=== PATIENT | female | born 1985 | race Two or more races ===

== ENCOUNTER 2020-08-11 13:13 | Inpatient (IN) | payer MEDICAID, OTHER ==
[~2020-08-11] VITALS: Ht 154.9 cm; Wt 81.8 kg
[2020-08-11 13:45] LABS: MICROSCOPIC INDICATED
[2020-08-11 14:01] VITALS: BP 149/92
[2020-08-11 14:01] LABS: AMPHETAMINE SCREEN, URINE Positive (Negative); BARBITURATE SCREEN, URINE Negative (Negative); BENZODIAZEPINE SCREEN, URINE Negative (Negative); CANNABINOID SCREEN, URINE Negative (Negative); COCAINE SCREEN, URINE Negative (Negative); METHADONE SCREEN, URINE Negative (Negative); OPIATE SCREEN, URINE Negative (Negative); PROTEIN/CREATININE RATIO,URINE 1390 (0-200); TOTAL PROTEIN,URINE RANDOM 139 mg/dL (0-12)
[2020-08-11 14:06] LABS: BASOPHILS # (AUTO) 0.02 x10^3/uL (0-0.1); BASOPHILS % (AUTO) 0 % (0-1); EOSINOPHILS # (AUTO) 0.03 x10^3/uL (0-0.4); EOSINOPHILS % (AUTO) 0 % (1-7); LYMPHOCYTES % (AUTO) 13 % (22-44); MD SCAN; MEAN CORPUSCULAR HGB CONC 31.7 g/dL (32.4-35.8); MEAN PLATELET VOLUME 8.9 fL (7.4-10.4); MONOCYTES # (AUTO) 0.48 x10^3/uL (0.2-0.8); MONOCYTES % (AUTO) 4 % (2-9); NEUTROPHILS # (AUTO) 9.34 x10^3/uL (1.8-6.8); NEUTROPHILS % (AUTO) 83 % (42-75); PLATELET COUNT 219 x10^3/uL (130-400); RED BLOOD COUNT 4.44 x10^6/uL (3.82-5.3); RED CELL DISTRIBUTION WIDTH 18.2 % (9.6-15.2)
[2020-08-11 14:14] LABS: ALANINE AMINOTRANSFERASE 21 U/L (12-78); ALBUMIN 2.1 g/dL (3.4-5.0); ANION GAP 10 mmol/L (5-15); CALCIUM 8.4 mg/dL (8.5-10.1); CHLORIDE 108 mmol/L (98-107); CREATININE 0.82 mg/dL (0.55-1.02)
[2020-08-11 14:20] LABS: ALKALINE PHOSPHATASE 284 U/L (45-117); BILIRUBIN,TOTAL 0.3 mg/dL (0.2-1.0); TOTAL PROTEIN 6.5 g/dL (6.4-8.2)
[2020-08-11] MEDS ORDERED: AMPICILLIN 2 GM in SODIUM CHLORIDE 0.9% 100 ML IVPB STA (14:40)
[2020-08-11] MEDS ORDERED: D5%-LACTATED RINGERS 1,000 ML IV SCH (14:40)
[2020-08-11] MEDS ORDERED: OXYTOCIN 30U/ 0.9% NaCL 500ML 500 ML IV ONE (14:40)
[2020-08-11] MEDS ORDERED: METOCLOPRAMIDE 5 MG/ML, 2ML IVPush PRN (15:00)
[2020-08-11] MEDS ORDERED: TERBUTALINE 1 MG/ML, 1ML SQ PRN (15:00)
[2020-08-11] MEDS ORDERED: FENTANYL PF 100 MCG/2ML IVPush PRN (15:00)
[2020-08-11] MEDS ORDERED: FENTANYL PF 100 MCG/2ML IV PRN ×2 (15:00→18:00)
[2020-08-11] MEDS ORDERED: ONDANSETRON 2MG/ML, 2ML IVPush PRN ×2 (15:00→18:00)
[2020-08-11] MEDS ORDERED: SODIUM CITRATE/CITRIC ACID 30 ML UDC PO PRN (15:00)
[2020-08-11] MEDS ORDERED: TERBUTALINE 1 MG/ML, 1ML IVPush PRN (15:00)
[2020-08-11] MEDS: LACTATED RINGERS 1,000 ML IV SCH ×6 (15:01→20:31)
[2020-08-11] MEDS ORDERED: OXYTOCIN 30U/ 0.9% NaCL 500ML 500 ML ONE (15:06)
[2020-08-11] MEDS ORDERED: LIDOCAINE 1%, 20ML ONE (15:07)
[2020-08-11] MEDS ORDERED: MISOPROSTOL 200 MCG TABLET ONE (15:07)
[2020-08-11] MEDS ORDERED: NEWBORN KIT ONE (15:07)
[2020-08-11] MEDS ORDERED: FENTANYL/BUPIV./NS/PF 250 ML EPIDCONT SCH (15:08)
[2020-08-11] MEDS ORDERED: FENTANYL/BUPIV./NS/PF 250 ML EPIDCONT ONE (15:21)
[2020-08-11] MEDS ORDERED: BUPIVACAINE 0.25% ONE (15:22)
[2020-08-11] MEDS ORDERED: LACTATED RINGERS 1,000 ML IVBOLUS PRN (15:30)
[2020-08-11] MEDS ORDERED: EPHEDRINE 50 MG/ML, 1ML IVPush PRN ×2 (15:30→18:00)
[2020-08-11] MEDS ORDERED: NALOXONE 0.4 MG/ML, 1ML IVPush PRN (15:30)
[2020-08-11] MEDS ORDERED: PROPOFOL 10 MG/ML, 20ML ONE (16:16)
[2020-08-11] MEDS ORDERED: FENTANYL PF 100 MCG/2ML ONE ×2 (16:16→16:33)
[2020-08-11] MEDS ORDERED: ONDANSETRON 2MG/ML, 2ML ONE (16:16)
[2020-08-11] MEDS ORDERED: PHENYLEPHRINE 10 MG/ML ONE (16:16)
[2020-08-11] MEDS ORDERED: KETOROLAC 30 MG/1 ML ONE (16:16)
[2020-08-11] MEDS ORDERED: OXYTOCIN 10 UNITS/ML, 1ML ONE (16:16)
[2020-08-11] MEDS ORDERED: EPHEDRINE 50 MG/ML, 1ML ONE (16:16)
[2020-08-11] MEDS ORDERED: CEFAZOLIN 1,000 MG ONE (16:16)
[2020-08-11] MEDS ORDERED: SUCCINYLCHOLINE 20 MG/ML, 10ML ONE (16:16)
[2020-08-11] MEDS ORDERED: DEXAMETHASONE 4 MG/ML, 1ML ONE (16:16)
[2020-08-11] MEDS ORDERED: AZITHROMYCIN 500 MG INJ ONE (16:20)
[2020-08-11] MEDS ORDERED: SODIUM BICARBONATE 4.2%, 5ML ONE (16:20)
[2020-08-11] MEDS ORDERED: SODIUM CHLORIDE 0.9%, 250ML ONE (16:20)
[2020-08-11] MEDS ORDERED: LIDOCAINE 2%, 20ML ONE (16:20)
[2020-08-11] MEDS ORDERED: METOCLOPRAMIDE 5 MG/ML, 2ML ONE (16:22)
[2020-08-11] MEDS ORDERED: morphine SULFATE/PF 0.5 MG/ML, 10ML ONE (16:33)
[2020-08-11] MEDS ORDERED: HETASTARCH 0.9 % 500 ML IV SCH (18:00)
[2020-08-11] MEDS ORDERED: morphine SULFATE 10 MG/ML, 1ML IV PRN (18:00)
[2020-08-11] MEDS ORDERED: PROMETHAZINE 25 MG/ML, 1ML IV PRN (18:00)
[2020-08-11] MEDS ORDERED: ALBUTEROL SULFATE 2.5 MG/3 ML NPPB PRN (18:00)
[2020-08-11] MEDS ORDERED: OXYcodone 5 MG/5 ML ORAL.SOL UDC PO PRN (18:00)
[2020-08-11] MEDS ORDERED: hydrALAzine 20 MG/ML, 1ML IV PRN (18:00)
[2020-08-11] MEDS ORDERED: HYDROcodone/APAP 7.5-325MG/15ML UDC PO PRN (18:00)
[2020-08-11] MEDS ORDERED: MIDAZOLAM 1 MG/ML, 2ML IV PRN (18:00)
[2020-08-11] MEDS ORDERED: HYDROmorphone 2 MG/ML, 1ML IVPush PRN (18:00)
[2020-08-11] MEDS ORDERED: AMPICILLIN 1 GM in SODIUM CHLORIDE 0.9% 100 ML IVPB SCH (19:00)
[2020-08-11] MEDS ORDERED: MISOPROSTOL 200 MCG TABLET PR ONE (19:00)
[2020-08-11] MEDS: METOPROLOL 1 MG/ML, 5ML IV PRN ×2 (19:23→19:33)
[2020-08-11] MEDS ORDERED: LABETALOL 5MG/ML, 20ML ONE (19:49)
[2020-08-11] MEDS ORDERED: LABETALOL 5MG/ML, 20ML IVPush PRN (19:50)
[2020-08-11] MEDS: LABETALOL 5MG/ML, 20ML IV PRN ×2 (19:51→20:04)
[2020-08-11] MEDS ORDERED: HYDROcodone/APAP 7.5-325MG/15ML UDC ONE (19:54)
[2020-08-11 20:02] VITALS: BP 160/72
[2020-08-11] MEDS: OXYTOCIN 30U/ 0.9% NaCL 500ML 500 ML IV SCH (20:31)
[2020-08-11 21:00] VITALS: BP 159/96
[2020-08-11] MEDS ORDERED: OXYcodone IR 5MG TABLET PO PRN ×2 (21:00)
[2020-08-11 21:41] VITALS: BP 156/96
[2020-08-12] MEDS: SIMETHICONE 80 MG CHEW TAB PO PRN ×2 (00:19→08:38)
[2020-08-12] MEDS: OXYcodone/APAP 5/325MG TABLET PO PRN ×3 (00:20→15:39)
[2020-08-12] MEDS: KETOROLAC 30 MG/1 ML IV SCH ×4 (00:20→20:22)
[2020-08-12 00:43] VITALS: BP 157/89
[2020-08-12 01:38] LABS: BASOPHILS # (AUTO) 0.01 x10^3/uL (0-0.1); BASOPHILS % (AUTO) 0 % (0-1); EOSINOPHILS # (AUTO) 0.01 x10^3/uL (0-0.4); EOSINOPHILS % (AUTO) 0 % (1-7); LYMPHOCYTES # (AUTO) 0.95 x10^3/uL (1-3.4); LYMPHOCYTES % (AUTO) 5 % (22-44); MD SCAN; MEAN CORPUSCULAR HEMOGLOBIN 26.1 pg (27.0-34.8); MEAN CORPUSCULAR HGB CONC 31.9 g/dL (32.4-35.8); MEAN PLATELET VOLUME 9.1 fL (7.4-10.4); MONOCYTES # (AUTO) 0.16 x10^3/uL (0.2-0.8); MONOCYTES % (AUTO) 1 % (2-9); NEUTROPHILS # (AUTO) 18.54 x10^3/uL (1.8-6.8); NEUTROPHILS % (AUTO) 94 % (42-75); PLATELET COUNT 211 x10^3/uL (130-400); RED BLOOD COUNT 4.08 x10^6/uL (3.82-5.3); RED CELL DISTRIBUTION WIDTH 17.9 % (9.6-15.2)
[2020-08-12] MEDS: LACTATED RINGERS 1,000 ML IV SCH ×5 (04:31→20:31)
[2020-08-12 04:36] VITALS: BP 138/90
[2020-08-12] MEDS: OXYTOCIN 30U/ 0.9% NaCL 500ML 500 ML IV SCH ×2 (06:31→16:31)
[2020-08-12 08:20] VITALS: BP 114/78
[2020-08-12] MEDS: DOCUSATE 100 MG CAPSULE PO PRN (08:22)
[2020-08-12] MEDS: PRENATAL VIT/IRON/FA 1 EACH TABLET PO SCH (08:22)
[2020-08-12 12:00] VITALS: BP 138/82
[2020-08-12 19:35] VITALS: BP_SYST 144; BP_SYST 148; BP_DIAS 83; BP_DIAS 93
[2020-08-13] MEDS: OXYcodone/APAP 5/325MG TABLET PO PRN ×5 (01:33→21:00)
[2020-08-13] MEDS: SIMETHICONE 80 MG CHEW TAB PO PRN ×3 (01:33→21:00)
[2020-08-13] MEDS: OXYTOCIN 30U/ 0.9% NaCL 500ML 500 ML IV SCH ×2 (02:31→12:31)
[2020-08-13] MEDS: LACTATED RINGERS 1,000 ML IV SCH ×4 (02:31→12:31)
[2020-08-13] MEDS: KETOROLAC 30 MG/1 ML IV SCH ×2 (03:21→09:09)
[2020-08-13 07:30] VITALS: BP 136/85
[2020-08-13] MEDS ORDERED: DIPH,PERTUSS(ACELL),TET VAC/PF NC IM-VACC ONE ×2 (07:50→08:30)
[2020-08-13] MEDS: PRENATAL VIT/IRON/FA 1 EACH TABLET PO SCH (09:09)
[2020-08-13] MEDS: DOCUSATE 100 MG CAPSULE PO PRN (09:09)
[2020-08-13] MEDS: IBUPROFEN 600 MG TABLET PO PRN ×2 (15:26→22:18)
[2020-08-13 21:00] VITALS: BP 159/98
[2020-08-14] MEDS: OXYcodone/APAP 5/325MG TABLET PO PRN ×4 (02:29→19:54)
[2020-08-14 07:35] VITALS: BP 147/80
[2020-08-14] MEDS: IBUPROFEN 600 MG TABLET PO PRN ×2 (08:04→15:43)
[2020-08-14] MEDS: PRENATAL VIT/IRON/FA 1 EACH TABLET PO SCH (08:04)
[2020-08-14] MEDS: SIMETHICONE 80 MG CHEW TAB PO PRN ×2 (08:04→19:56)
[2020-08-14] MEDS: DOCUSATE 100 MG CAPSULE PO PRN ×2 (08:05→19:54)
[2020-08-14 13:30] VITALS: BP 155/90
[2020-08-14 19:50] VITALS: BP 172/112
[2020-08-14 20:25] VITALS: BP 158/98
[2020-08-14 20:26] VITALS: BP 149/92
[2020-08-15 00:05] VITALS: BP 153/97
[2020-08-15] MEDS: IBUPROFEN 600 MG TABLET PO PRN ×4 (00:09→18:16)
[2020-08-15] MEDS: OXYcodone/APAP 5/325MG TABLET PO PRN ×4 (00:09→18:18)
[2020-08-15 04:15] VITALS: BP 149/92
[2020-08-15 07:10] VITALS: BP 151/91
[2020-08-15] MEDS: DOCUSATE 100 MG CAPSULE PO PRN (08:20)
[2020-08-15] MEDS: PRENATAL VIT/IRON/FA 1 EACH TABLET PO SCH (08:20)
[2020-08-15] MEDS: SIMETHICONE 80 MG CHEW TAB PO PRN (08:20)
[2020-08-15 13:30] VITALS: BP 143/89
[2020-08-15] MEDS ORDERED: SENN-92 PO (17:44)
[2020-08-15] MEDS ORDERED: IBUP-1222 PO (17:44)
[2020-08-15] MEDS ORDERED: OXYC-302 PO (17:44)
== END 2020-08-15 18:50 | disposition home or self-care (01) | DRG 787 ==
LOC: LDOP 13:13 → LDIP 14:34 → 2NW 20:45
PROVIDERS: ADMIT Obstetrics & Gynecology; ATTEND Obstetrics & Gynecology
PROC: 10D00Z1 Extraction of Products of Conception, Low, Open Approach (ICD-10-PCS; principal; 2020-08-11)
DX: O14.04 Mild to moderate pre-eclampsia, complicating childbirth (principal); O41.03X0 Oligohydramnios, third trimester, not applicable or unspecified; F15.90 Other stimulant use, unspecified, uncomplicated; O76 Abnormality in fetal heart rate and rhythm complicating labor and delivery; O77.0 Labor and delivery complicated by meconium in amniotic fluid; O99.324 Drug use complicating childbirth; Z37.0 Single live birth; Z3A.38 38 weeks gestation of pregnancy; Z03.818 Encounter for observation for suspected exposure to other biological agents ruled out
CPT/HCPCS: 36415; 87806; J3490; 76805; 80053; 80307; 81001; 82570; 84156; 84550; 85025; 86592; 86762; 86850; 86900; 87081; 87340; 87635; 88307; 90715; G0378; J0290; J0456; J0690; J1100; J1885; J2274; J2405; J2704; J3010; G0475; J0330; J2370; J2590; J2765; J7050; J7120

== ENCOUNTER 2020-08-22 16:55 | Inpatient (IN) | payer MEDICAID ==
[~2020-08-22] VITALS: Ht 154.9 cm; Wt 89.2 kg
[~2020-08-22 16:55] MED LIST: IBUP-1222 PO; OXYC-302 PO; SENN-92 PO
[2020-08-22] MEDS ORDERED: SODIUM CHLORIDE FLUSH 10ML SYR IVF ONE (18:00)
[2020-08-22 18:12] LABS: BASOPHILS # (AUTO) 0.05 x10^3/uL (0-0.1); BASOPHILS % (AUTO) 1 % (0-1); EOSINOPHILS # (AUTO) 0.06 x10^3/uL (0-0.4); EOSINOPHILS % (AUTO) 1 % (1-7); LYMPHOCYTES # (AUTO) 2.21 x10^3/uL (1-3.4); LYMPHOCYTES % (AUTO) 23 % (22-44); MD NO; MEAN CORPUSCULAR HEMOGLOBIN 26.1 pg (27.0-34.8); MEAN CORPUSCULAR HGB CONC 31.5 g/dL (32.4-35.8); MEAN PLATELET VOLUME 7.3 fL (7.4-10.4); MONOCYTES # (AUTO) 0.38 x10^3/uL (0.2-0.8); MONOCYTES % (AUTO) 4 % (2-9); NEUTROPHILS # (AUTO) 6.82 x10^3/uL (1.8-6.8); NEUTROPHILS % (AUTO) 72 % (42-75); PLATELET COUNT 543 x10^3/uL (130-400); RED BLOOD COUNT 4.44 x10^6/uL (3.82-5.3); RED CELL DISTRIBUTION WIDTH 20.3 % (9.6-15.2)
--- NOTE | 2020-08-22 18:20 | NUR ---
PT AMBULATES WELL AROUND ROOM AND TO BATHROOM FOR UA SAMPLE. NAD NOTED AT THIS TIME, PLEASANT WITH STAFF. VERBALIZES UNDERSTANDING OF PLAN OF CARE.
[2020-08-22 18:21] LABS: ALBUMIN 2.7 g/dL (3.4-5.0); ANION GAP 8 mmol/L (5-15); CALCIUM 8.3 mg/dL (8.5-10.1); CHLORIDE 108 mmol/L (98-107); CREATININE 0.84 mg/dL (0.55-1.02)
--- NOTE | 2020-08-22 18:22 | NUR ---
ua walked to lab.
[2020-08-22 18:24] LABS: MICROSCOPIC AUTO
[2020-08-22 18:28] LABS: ALANINE AMINOTRANSFERASE 60 U/L (12-78); ALKALINE PHOSPHATASE 149 U/L (45-117); BILIRUBIN,TOTAL 0.4 mg/dL (0.2-1.0); TOTAL PROTEIN 7.2 g/dL (6.4-8.2); TROPONIN I 0.085 ng/mL (0.000-0.045)
--- NOTE | 2020-08-22 19:18 | NUR ---
pt in imaging upon RN recheck.
[2020-08-22] MEDS ORDERED: OMNIPAQUE 350 MG/ML, 75ML BOTTLE ONE (19:30)
--- NOTE | 2020-08-22 19:31 | NUR ---
PT RETURNED FROM CTA. DENIES PAIN AT THIS TIME, C/O SOB. O2 VIA NC PROVIDES RELIEF FOR PT'S COMPLAINT, SHE REPORTS IMPROVEMENT. SIDE RAILS UP, CALL LIGHT IN REACH. AWAITING CTA RESULTS.
--- NOTE | 2020-08-22 20:38 | NUR ---
DISCUSSION WITH ERMD REGARDING RESULTS. AWAITING ORDERS. ERMD TO DISCUSS PLAN WITH PT TO ADMIT.
[2020-08-22] MEDS ORDERED: FUROSEMIDE 20 MG/2 ML ONE (20:42)
--- NOTE | 2020-08-22 20:55 | NUR ---
REPORT TO CAESAR FERNÁNDEZ. PT SITTING UP IN BED, VERBALIZES UNDERSTANDING OF PLAN. MEDS ADMINSTERED PER EMAR. PT KNOWS TO CALL BEFORE GOING TO BATHROOM FOR OUTPUT MEASUREMENT. REQUEST FROM POST FOR BREAST PUMP PT IS 5 DAYS POST .
--- NOTE | 2020-08-22 20:56 | NUR ---
NOTE FOR ERMD REGARDING POTASSIUM. AWAITING FURTHER ORDERS.
--- NOTE | 2020-08-22 20:59 | NUR ---
REPORT RECEIVED FROM CAESAR ALLEN. PLAN OF CARE DISCUSSED
[2020-08-22] MEDS ORDERED: FUROSEMIDE 20 MG/2 ML IV ONE (21:00)
[2020-08-22] MEDS ORDERED: NITROGLYCERIN OINT 2%, 1GM TP ONE ×2 (21:00→21:01)
--- NOTE | 2020-08-22 21:00 | NUR ---
RECEIVED BREAST PUMP FOR PATIENT FROM , THEY ARE AWARE PATIENT WILL BE ADMITTED AND STATES BREAST PUMP CAN GO WITH HER TO ADMITTING FLOOR
--- NOTE | 2020-08-22 21:02 | NUR ---
PT EDUCATED ON HOW TO USE BREAST PUMP. PT VERBALIZES UNDERSTANDING. DISCUSSION REGARDING LASIX AND PT'S POTASSIUM LEVEL. AWAITING FURTHER ORDERS.
[2020-08-22] MEDS ORDERED: POTASSIUM CHLORIDE 20 MEQ TAB.ER.PRT ONE (21:09)
--- NOTE | 2020-08-22 21:09 | NUR ---
NITROBID PASTE APPLIED
[2020-08-22] MEDS ORDERED: CEFTRIAXONE PMX 1GM/50ML 50 ML IV ONE (21:30)
[2020-08-22] MEDS ORDERED: LABETALOL 5MG/ML, 20ML IVPush PRN ×2 (21:30→22:00)
[2020-08-22] MEDS ORDERED: DOCUSATE 100 MG CAPSULE PO PRN (21:30)
[2020-08-22] MEDS ORDERED: ACETAMINOPHEN 325 MG TABLET PO PRN (21:30)
[2020-08-22] MEDS ORDERED: POTASSIUM CHLORIDE 20 MEQ TAB.ER.PRT PO ONE (21:30)
--- NOTE | 2020-08-22 21:31 | NUR ---
STRAIGHT CATH PERFORMED PER DR. GARBER AND TYRONE SALGUERO TO DERTERMINE PROTEIN/CREATININE RATIO TO DETERMINE IF PRE-ECCLAMPTIC Addendum: 08/22/20 at 2132 by TOLU SPECIMEN WALKED TO LAB
[2020-08-22 21:41] LABS: MICROSCOPIC AUTO
[2020-08-22] MEDS ORDERED: CEFTRIAXONE PMX 1GM/50ML 50 ML ONE (21:44)
--- NOTE | 2020-08-22 21:48 | NUR ---
PATIENT MEDICATED PER EMAR, TOLERATED WELL
[2020-08-22] MEDS ORDERED: HEPARIN 5,000 UNITS/ML, 1ML SQ SCH (22:00)
--- NOTE | 2020-08-22 22:03 | NUR ---
REPORT GIVEN TO CAESAR AL. PLAN OF CARE DISCUSSED
[2020-08-22 22:04] LABS: TROPONIN I 0.099 ng/mL (0.000-0.045)
[2020-08-22 22:36] VITALS: BP 103/64
[2020-08-22 23:27] LABS: INTERNATIONAL NORMALIZED RATIO 0.94 (0.93-1.1); PROTHROMBIN TIME 9.7 Seconds (9.6-11.5)
[2020-08-23 00:57] LABS: CREATININE,URINE RANDOM 15.3 mg/dL
[2020-08-23 01:09] VITALS: BP 117/79
[2020-08-23] MEDS ORDERED: FLU VACC QS2020-21(6MOS UP)/PF 60MCG/0.5 ML SYR IM-VACC ONE (02:30)
[2020-08-23] MEDS: OXYcodone/APAP 5/325MG TABLET PO PRN ×2 (02:46→20:50)
[2020-08-23 03:30] LABS: BASOPHILS # (AUTO) 0.14 x10^3/uL (0-0.1); BASOPHILS % (AUTO) 2 % (0-1); EOSINOPHILS # (AUTO) 0.08 x10^3/uL (0-0.4); EOSINOPHILS % (AUTO) 1 % (1-7); LYMPHOCYTES # (AUTO) 2.02 x10^3/uL (1-3.4); LYMPHOCYTES % (AUTO) 22 % (22-44); MD NO; MEAN CORPUSCULAR HEMOGLOBIN 26.5 pg (27.0-34.8); MEAN CORPUSCULAR HGB CONC 31.8 g/dL (32.4-35.8); MEAN PLATELET VOLUME 7.3 fL (7.4-10.4); MONOCYTES # (AUTO) 0.43 x10^3/uL (0.2-0.8); MONOCYTES % (AUTO) 5 % (2-9); NEUTROPHILS # (AUTO) 6.37 x10^3/uL (1.8-6.8); NEUTROPHILS % (AUTO) 71 % (42-75); PLATELET COUNT 473 x10^3/uL (130-400); RED BLOOD COUNT 3.94 x10^6/uL (3.82-5.3); RED CELL DISTRIBUTION WIDTH 20.3 % (9.6-15.2)
[2020-08-23 03:44] LABS: ALANINE AMINOTRANSFERASE 53 U/L (12-78); ALBUMIN 2.4 g/dL (3.4-5.0); ANION GAP 8 mmol/L (5-15); CALCIUM 7.9 mg/dL (8.5-10.1); CHLORIDE 107 mmol/L (98-107)
[2020-08-23 03:49] LABS: ALKALINE PHOSPHATASE 124 U/L (45-117); BILIRUBIN,TOTAL 0.4 mg/dL (0.2-1.0); CREATININE 0.56 mg/dL (0.55-1.02); TOTAL PROTEIN 6.2 g/dL (6.4-8.2); TROPONIN I 0.074 ng/mL (0.000-0.045)
[2020-08-23] MEDS ORDERED: METOPROLOL TARTRATE 25 MG TAB PO SCH (06:00)
[2020-08-23 07:15] VITALS: BP 128/76
[2020-08-23] MEDS: POTASSIUM CHLORIDE 20 MEQ TAB.ER.PRT PO SCH (08:59)
[2020-08-23] MEDS ORDERED: FUROSEMIDE 40 MG/4 ML IVPush SCH (09:00)
[2020-08-23 13:50] VITALS: BP 111/73
[2020-08-23] MEDS ORDERED: POTASSIUM CHLORIDE 20 MEQ TAB.ER.PRT PO ONE (16:00)
[2020-08-23] MEDS: FUROSEMIDE 40 MG TABLET PO SCH (16:28)
[2020-08-23] MEDS ORDERED: POTASSIUM CHLORIDE 20 MEQ TAB.ER.PRT PO SCH (17:00)
[2020-08-23] MEDS: CARVEDILOL 3.125 MG TABLET PO SCH (18:16)
[2020-08-23 18:42] VITALS: BP 114/72
[2020-08-23] MEDS: LISINOPRIL 5 MG TABLET PO SCH (20:38)
[2020-08-23] MEDS ORDERED: CEFTRIAXONE PMX 1GM/50ML 50 ML IV SCH (21:00)
[2020-08-24 01:01] VITALS: BP 119/77
[2020-08-24 05:01] LABS: ANION GAP 8 mmol/L (5-15); CALCIUM 8.4 mg/dL (8.5-10.1); CHLORIDE 108 mmol/L (98-107)
[2020-08-24 05:02] LABS: CREATININE 0.68 mg/dL (0.55-1.02)
[2020-08-24] MEDS: CARVEDILOL 3.125 MG TABLET PO SCH (05:29)
[2020-08-24 06:33] VITALS: BP 112/77
[2020-08-24] MEDS: LISINOPRIL 5 MG TABLET PO SCH (08:40)
[2020-08-24] MEDS: POTASSIUM CHLORIDE 20 MEQ TAB.ER.PRT PO SCH (08:41)
[2020-08-24] MEDS: FUROSEMIDE 40 MG TABLET PO SCH (08:41)
[2020-08-24] MEDS ORDERED: FURO40TA6 PO (09:15)
[2020-08-24] MEDS ORDERED: NITR100C56 PO (09:15)
[2020-08-24] MEDS ORDERED: CARV3.1212 PO (09:15)
[2020-08-24] MEDS ORDERED: POTA20TA6 PO (09:15)
[2020-08-24] MEDS ORDERED: LISI5TAB7 PO (09:15)
== END 2020-08-24 11:22 | disposition home or self-care (01) | DRG 776 ==
LOC: ED 21:14 → EDIP 21:15 → 5SO 22:13 → DCLOUNGE 08-24 11:18
PROVIDERS: ADMIT Family Medicine; ATTEND Hospitalist
DX: O90.3 Peripartum cardiomyopathy (principal); J96.01 Acute respiratory failure with hypoxia; O86.20 Urinary tract infection following delivery, unspecified; O10.93 Unspecified pre-existing hypertension complicating the puerperium; B96.1 Klebsiella pneumoniae [K. pneumoniae] as the cause of diseases classified elsewhere; O99.53 Diseases of the respiratory system complicating the puerperium
CPT/HCPCS: 36415; 71275; 80048; 80053; 81001; 82570; 83735; 83880; 84132; 84156; 84443; 84484; 84550; 85025; 85379; 85610; 87077; 87086; 87186; 90686; 93005; 93306; 96365; G0378; J0696; J1940; Q9967

== ENCOUNTER 2020-11-12 20:45 | Emergency (ER) | payer MEDICAID ==
[~2020-11-12] VITALS: Ht 154.9 cm; Wt 73.8 kg
[~2020-11-12 20:45] MED LIST changes: +CARV3.1212 PO; +FURO40TA6 PO; +LISI5TAB7 PO; +NITR100C56 PO; +POTA20TA6 PO
[2020-11-12 20:54] VITALS: BP 126/78
--- NOTE | 2020-11-12 21:16 | NUR ---
CC OF MULTIPLE WOUNDS ON BOTTOM LIP, LEFT NIPPLE, AND ON BACK OF BOTH THIGHS. PT HAD EXPOSURE TO [place] CRUSTED SCABIES AND WAS SEEN AT ON Sep AND 11/08 WHEN WOUNDS STARTED ON ARMS AND HANDS AND RECEVIED TREATMENT AND FEELS LIKE SOME WOUNDS HAVE GOTTEN BETTER BUT ALSO STATES SHE CAN FEEL MOVEMENT UNDERNEATH WOUNDS. ARMS AND HANDS APPEARED TO BE DRY AND HAVE SLIGHTY IMPROVED BUT NOT HAVE SPREADT TOP LIP, NIPPLE, AND BACK OF BOTH THIGHS. PT ALSO STATES SHE FEELS LIGHT HEADED AND HAS A TICKLE IN HER THROAT.
== END 2020-11-12 21:59 | disposition home or self-care (01) ==
LOC: ED 21:07
DX: L01.01 Non-bullous impetigo (principal); L73.9 Follicular disorder, unspecified; F15.10 Other stimulant abuse, uncomplicated; J02.9 Acute pharyngitis, unspecified; Z87.891 Personal history of nicotine dependence
CPT/HCPCS: 99283